=== PATIENT | male | born 1990 | race Hispanic/Latino ===

== ENCOUNTER 2016-05-27 13:07 | Emergency (ER) | payer OTHER ==
[~2016-05-27] VITALS: Ht 177.8 cm; Wt 127.0 kg
--- NOTE | 2016-05-27 14:48 | ED GI/GU/ABDOMINAL COMPLAINT ---
History of Present Illness General Chief Complaint: General Adult Stated Complaint: LBP Source: patient Exam Limitations: no limitations Vital Signs & Intake/Output Vital Signs & Intake/Output Vital Signs Date Time Temp Pulse Resp B/P Pulse O2 O2 Flow FiO2 Ox Delivery Rate 05/27 1542 97.2 83 20 156/75 96 Room Air 05/27 1312 97.0 73 18 164/74 100 Room Air ED Intake and Output 05/28 0000 05/27 1200 Intake Total Output Total Balance Patient 280 lb Weight Allergies Coded Allergies: No Known Allergies (05/27/16) Reconcile Medications Anusol Hc (Anusol-Hc) 25 MG SUPP.RECT 1 SUP RC BID Hemorrhoids Triage Note: PT TO ED FOR RECTAL PAIN X 3 WEEKS. Triage Nurses Notes Reviewed? yes HPI: 25 yo previously healthy M presenting with rectal pain, rectal bleeding. Rectal pain x 2-3 weeks, constant but worse with defecation, pressure/throbbing sensation. Associated rectal bleeding, blood streaking every bowel movement, occasional gush of blood after defecation. Intermittent diarrhea, denies abdominal pain, constipation, CP, SOB, dizziness. Has been using preparation H with some relief, concerned about duration of Sx without complete relief prompting presentation to the ED. (LINDA SEVILLA,BRENT) Past History Travel History Traveled to [place] past 21 day No Medical History Any Pertinent Medical History? none Neurological: NONE EENT: NONE Cardiovascular: NONE Respiratory: NONE Gastrointestinal: NONE Hepatic: NONE Renal: NONE Musculoskeletal: NONE Psychiatric: NONE Endocrine: NONE Blood Disorders: NONE Cancer(s): NONE Surgical History Surgical History: none Psychosocial History What is your primary language Nepalese Tobacco Use: Never used ETOH Use: occasional use Illicit Drug Use: denies illicit drug use Family History Hx Contributory? No (LINDA SEVILLA,BRENT) Review of Systems Review of Systems Constitutional: Reports: no symptoms. EENTM: Reports: no symptoms. Respiratory: Reports: no symptoms. Cardiovascular: Reports: no symptoms. GI: Reports: diarrhea, bloody stool. Denies: abdominal pain, constipation, nausea, vomiting. Genitourinary: Reports: no symptoms. Musculoskeletal: Reports: no symptoms. Skin: Reports: no symptoms. Neurological/Psychological: Reports: no symptoms. Hematologic/Endocrine: Reports: no symptoms. Immunologic/Allergic: Reports: no symptoms. All Other Systems: Reviewed and Negative (BRENT MCKEON MD) Physical Exam Physical Exam General Appearance: well developed/nourished, no apparent distress, alert, awake Eyes: Bilateral: normal appearance. Neck: normal inspection, supple, full range of motion Respiratory: normal breath sounds, no respiratory distress Cardiovascular: regular rate/rhythm, normal peripheral pulses Gastrointestinal: normal bowel sounds, soft, non-tender, no organomegaly Rectal: hemmorrhoids Comments: Rectal Exam: Single non-erythematous, non-thrombosed external hemorrhoid posterior central anal verge, mild TTP, bright red blood on glove with mild pain on rectal exam Core Measures ACS in differential dx? No Severe Sepsis Present: No Septic Shock Present: No (LINDA SEVILLA,BRENT) Progress Differential Diagnosis: Hemorrhoids, Rectal fissue, less likely IBD or LGIB Plan of Care: Orders Procedure Date/time Status COMPREHENSIVE METABOLIC PANEL 05/27 1436 Complete CBC WITHOUT DIFFERENTIAL 05/27 1436 Complete Laboratory Tests 05/27/16 1450: Anion Gap 10, Estimated GFR > 60, BUN/Creatinine Ratio 21.1, Glucose 106 H, Calcium 10.1, Total Bilirubin 0.6, AST 22, ALT 33, Alkaline Phosphatase 68, Total Protein 7.4, Albumin 4.2, Globulin 3.2, Albumin/Globulin Ratio 1.3, CBC w Diff NO MAN DIFF REQ, RBC 5.80, MCV 89.5, MCH 29.6, RDW 13.8, MPV 9.5, Gran % 67.7, Lymphocytes % 24.0, Monocytes % 6.2, Eosinophils % 1.0, Basophils % 1.1, Absolute Granulocytes 7.4 H, Absolute Lymphocytes 2.6, Absolute Monocytes 0.7 H, Absolute Eosinophils 0.1, Absolute Basophils 0.1, PUBS MCHC 33.1 Physician MDM: 25 yo M presenting with rectal pain and bleeding x 2-3 weeks. VSS , single posterior hemorrhoid on rectal exam. DDx: Hemorhoids, Rectal fissure, less likely IBD or LGIB. CBC with normal Hgb. CMP unermarkable, normal BUN. The patients GBS score is 0 induicating 0% risk of mortality 2/2 GIB in the next 6 months. Patient given teaching about symptomatic management of hemorrhoids (sitz baths, ect.). Given prescription for anusol. 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 D/Dre with return precautions. D/W Dr. Avitia. (LINDA SEVILLA,BRENT) Initial ED EKG: none (LINDA SEVILLA,BRENT) Departure Departure Disposition: HOME OR SELF CARE Condition: Stable Clinical Impression Primary Impression: Hemorrhoids Qualifiers: Hemorrhoid type: other Qualified Code: K64.8 - Other hemorrhoids Secondary Impressions: Rectal bleeding, Rectal pain Referrals: MATT THOMPSON APRN (PCP/Family) MATY SEVILLA,WINSOME N. Additional Instructions: Try sitz baths or ibuprofen for pain control. Begin using anusol as prescribed. Follow up with your primary care physician in the next 2-[address] days. Follow up with Dr. Baltazar (General Surgery) if neccessary. Return to the ED for any new, worsening, or concerning symptoms. Departure Forms: Customer Survey General Discharge Information Prescriptions: Current Visit Scripts Anusol Hc (Anusol-Hc) 1 SUP RC BID #[id number] SUP (LINDA SEVILLA,BRENT) Resident Co-Sign Statement Statement: ED Attending supervision documentation- [X] I saw and evaluated the patient. I have also reviewed all the pertinent lab results and diagnostic results. I agree with the findings and the plan of care as documented in the Resident's documentation. [X] I have reviewed the ED Record and agree with the Resident's documentation. [] Additions or exceptions (if any) to the Resident's note and plan are summarized below: [] (CAROLINE SEVILLA,GUSTAVO)
[2016-05-27 15:01] LABS: ABSOLUTE BASOPHIL COUNT 0.1 /CUMM (0.0-0.2); ABSOLUTE EOSINOPHIL COUNT 0.1 /CUMM (0.0-0.7); ABSOLUTE GRANULOCYTE CT 7.4 /CUMM (1.4-6.5); ABSOLUTE LYMPH COUNT 2.6 /CUMM (1.2-3.4); ABSOLUTE MONOCYTE COUNT 0.7 /CUMM (0.10-0.60); BASOPHIL % 1.1 % (0.0-2.0); GRANULOCYTE % 67.7 % (42.2-75.2); HEMATOCRIT 51.9 % (42-52); MEAN CORPUSCULAR HGB 29.6 PG (27.0-31.0); MEAN CORPUSCULAR HGB CONC 33.1 G/DL (33.0-37.0); MEAN CORPUSCULAR VOLUME 89.5 FL (80.0-94.0); MEAN PLATELET VOLUME 9.5 FL (7.4-10.4); PLATELET COUNT 202 /CUMM (130-400); RBC DISTRIBUTION WIDTH 13.8 % (11.5-14.5)
[2016-05-27 15:42] VITALS: BP 156/75
[2016-05-27] MEDS ORDERED: ANUSOL-HC25 M1 RC (15:57)
== END 2016-05-27 16:09 ==
LOC: ERH 13:07
PROVIDERS: Student in an Organized Health Care Education/Training Program
DX: K64.9 Unspecified hemorrhoids (principal)